=== PATIENT | female | born 1955 | race Caucasian/White ===

== ENCOUNTER 2018-03-27 09:08 | Outpatient (CLI) | payer BC ==
--- NOTE | 2018-03-27 11:40 | BD ---
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 10-year fracture risk of major osteoporotic fracture is 34%, and hip fracture 4.9%. These fractures probabilities are calc ulated for an untreated patient. POS: [facility]
== END 2018-03-27 09:09 | disposition home or self-care (01) ==
LOC: BICMAMMO 09:08
PROVIDERS: ATTEND Family Medicine
DX: Z13.820 Encounter for screening for osteoporosis (principal); M81.0 Age-related osteoporosis without current pathological fracture; M85.852 Other specified disorders of bone density and structure, left thigh
CPT/HCPCS: 77080

== ENCOUNTER 2018-07-10 11:33 | Outpatient (CLI) | payer BC ==
[2018-07-10] MEDS ORDERED: Gadobenate Dimeglumine 529 MG/1 ML (20ML VIAL) ONE (13:01)
--- NOTE | 2018-07-10 15:17 | RAD ---
LUMBAR SPINE 3 VIEWS: HISTORY: M54.10, acute lumbar radiculopathy. COMPARISON: 06/14/2018. FINDINGS: Three views of the lumbar spine including standing neutral, flexion, and extension lateral views are performed. Pedicle screw placement changes at L4-L5 with intradiskal prosthesis with approximately 0.6 cm of ant erolisthesis of L4 on L5 showing no abnormal translation between flexion and extension. IMPRESSION: Stable anterolisthesis of L4 on L5 with postoperative changes including medical screws. Marked narro wing at L5-S1. Generalized spondylosis. No abnormal translation between flexion and extension. POS: [facility]
--- NOTE | 2018-07-10 15:22 | MRI ---
MRI OF THE LUMBAR SPINE WITH AND WITHOUT CONTRAST: INDICATION: Acute lumbar radiculopathy with low back pain for 5 weeks. The patient has referred pain down the ri ght leg. History of lumbar back surgery in 2009. CONTRAST: 14 cc of MultiHance. COMPARISON: Prior MRI of the lumbar spine dated 08/23/2012 from [facility] and lumbar spinal radio graph dated 06/14/2018. FINDINGS: There is stable postprocedural change of a left posterior inter lumbar fusion construct at L4-5. Gra de I anterolisthesis of L4 and L5 is stable. Visualized aspects of the retroperitoneum and paraverte bral soft tissues appear within normal limits. At L5-S1, there is a broad-based disk bulge with facet hypertrophy inducing mild right and mild to mo derate neural foraminal narrowing which is stable to the prior exam. At L4-5, there is a broad-based osteophyte complex with facet hypertrophy, but no appreciable central canal or neural foraminal narrowing. At L3-4, there is a broad-based bulge with facet hypertrophy inducing mild central canal narrowing wh ich is stable. There is mild neural foraminal encroachment which is also stable. At L2-3, there is no appreciable central canal or neural foraminal narrowing. At L1-2, there is no appreciable central canal or neural foraminal narrowing. At T12-L1, there is no appreciable central canal or neural foraminal narrowing. Postcontrast images demonstrate no area of abnormal contrast enhancement. IMPRESSION: Stable postoperative lumbar spine with stable mild central canal narrowing and mild bilateral neural foraminal narrowing at L3-4. POS: [facility]
== END 2018-07-10 11:34 | disposition home or self-care (01) ==
LOC: BICMRI 11:33
PROVIDERS: ATTEND Anesthesiology Pain Medicine
DX: M51.16 Intervertebral disc disorders with radiculopathy, lumbar region (principal); M47.26 Other spondylosis with radiculopathy, lumbar region; M43.16 Spondylolisthesis, lumbar region; M48.061 Spinal stenosis, lumbar region without neurogenic claudication; M48.07 Spinal stenosis, lumbosacral region; Z98.890 Other specified postprocedural states
CPT/HCPCS: 72120; 72158

== ENCOUNTER 2018-12-15 14:42 | Emergency (ER) | payer BC, MEDICARE ==
[~2018-12-15 14:42] MED LIST: ISOVUE-370 76%-LOCM 1 ML ONE
[2018-12-15 15:14] LABS: Bilirubin Negative (Negative); Blood, Urine Negative (Negative); Clarity Clear (Clear); Glucose, Urine (Dipstick) Normal (Negative); Leukocyte Negative Leu/uL (Negative); Nitrite Negative (Negative); Protein, Urine (Dipstick) Negative (Neg-Trace); Urobilinogen Normal mg/dL (Less than 2)
[2018-12-15 15:24] LABS: #Basophils 0.1 thou/uL (0.0-0.2); #Eosinphils 0.3 thou/uL (0.0-0.7); #Lymphocytes 2.9 thou/uL (1.20-3.40); #Neutrophils 8.5 thou/uL (1.40-6.50); %Basophils 0.6 % (0.0-1.0); %Monocytes 8.1 % (0.0-10.0); %Neutrophils 66.3 % (42.0-75.0); Hemoglobin 14.8 g/dL (12.0-16.0); Mean Corpuscular HGB CONC 34.6 g/dL (32.0-36.0); Mean Corpuscular Hemoglobin 30.8 pg (27.0-31.0); Mean Platelet Volume 6.7 fL (7.4-10.4); Platelet Count 333 thou/uL (130-400); RBC Distribution Width 12.1 % (11.5-14.5); White Blood Cell (WBC) Count 12.8 thou/uL (4.8-10.8)
[2018-12-15] MEDS ORDERED: Morphine 4 MG/ML VIAL ONE (15:37)
[2018-12-15 15:48] LABS: ALT (SGPT) 16 U/L (8-55); AST (SGOT) 19 U/L (5-34); Albumin 4.3 g/dL (3.4-4.8); Alkaline Phosphatase 78 U/L (40-150); Anion Gap 18 mmol/L (10-20); BUN (Urea Nitrogen) 15 mg/dL (9.8-20.1); Bilirubin, Total 1.5 mg/dL (0.2-1.2); Calc. Creatinine Clearance 0 mL/min (70-130); Calcium 10.4 mg/dL (7.8-10.44); Carbon Dioxide 25 mmol/L (23-31); Chloride 97 mmol/L (98-107); Estimated GFR-MDRD 54; Globulin 3.6 g/dL (2.4-3.5); Glucose 100 mg/dL (80-115); Lipase 25 U/L (8-78); Protein, Total 7.9 g/dL (6.0-8.3); Sodium 137 mmol/L (136-145)
[2018-12-15 15:51] LABS: Potassium 2.7 mmol/L (3.5-5.1)
[2018-12-15] MEDS ORDERED: Ondansetron PF 4 MG/2 ML Vial ONE ×2 (16:27→16:29)
--- NOTE | 2018-12-15 17:05 | CT ---
EXAM: CT ABDOMEN AND PELVIS HISTORY: Abdominal pain. COMPARISON: 12/06/2015 Procedure: Multiple contiguous axial images were obtained and a CT of the abdomen and pelvis with IV contrast. C oronal reformats were performed. FINDINGS: Lower Chest: Clear lung bases Vessels: Normal caliber aorta Heart: Normal cardiac size. Abdomen: Portal vein:Patent Gallbladder: Surgically absent Liver: within normal limits. Pancreas: within normal limits. Spleen: within normal limits. Adrenals: within normal limits. Kidneys: Symmetric enhancement. No obstructive uropathy. Peritoneum: No ascites or free air, no fluid collection. Bowel: No evidence of bowel obstruction. Ileocecal junction is normal. Normal caliber appendix. Decom pressed colon. Diverticulosis. There is evidence of bowel wall thickening with pericolonic fat stranding involving the sigmoid colon. Diverticulitis is suspected. No abscess. No perforation. Mesentery and Retroperitoneum: No enlarged mesenteric or retroperitoneal lymph nodes. Nonspecific per iaortic lymph node measuring 0.4 x 1.2 cm Abdominal Wall: within normal limits. Pelvis: Reproductive Organs: No pelvic masses. Pelvis: Small amount of fluid and stranding of left hemipelvis secondary to diverticulitis of the sig moid: Bladder: within normal limits. Bones: Stable fusion changes in the lumbar spine. IMPRESSION: 1. Diverticulitis involving the sigmoid colon. No perforation or abscess. 2. Normal caliber appendix.
[2018-12-15] MEDS ORDERED: Potassium Chloride 20 MEQ TAB ONE (17:39)
== END 2018-12-15 18:40 | disposition home or self-care (01) ==
LOC: ERS 14:42
DX: K57.32 Diverticulitis of large intestine without perforation or abscess without bleeding (principal); E87.6 Hypokalemia; E78.5 Hyperlipidemia, unspecified; M19.90 Unspecified osteoarthritis, unspecified site; Z79.899 Other long term (current) drug therapy
CPT/HCPCS: 36415; 74177; 80053; 81003; 83690; 85025; 96361; 96374; 96375; J2270; J2405; Q9966

== ENCOUNTER 2020-08-11 13:50 | Outpatient (CLI) | payer MEDICARE ==
--- NOTE | 2020-08-11 15:18 | BD ---
DEXA bone density scan 08/11/2020 Comparison 03/27/2018. HISTORY: Postmenopausal female undergoing screening for osteoporosis. FINDINGS: BMD (g/cm2) Left Femoral Neck 0.648 T-Score -1.8 (previous -2.1) Total Proximal Left Femur 0.759 T-Score -1.5 (previous -1.7) Right Femoral Neck 0.616 T-Score -2.1 (previous -2.5) Total Proximal Right Femur 0.811 T-Score -1.1 (previous -2.1) Distal 1/3 Distal Radius 0.389 T-Score -0.9 Middle 1/3 Distal Forearm 0.395 T-Score -3.9 Proximal 1/3 Distal Forearm 0.538 T-Score -2.6 Total Distal Forearm 0.415 T-Score -3.0 The forearm was not interrogated on the prior exam. The FRAX-WHO fracture risk assessment tool reports a 10 year fracture risk in an untreated patient at 16-19% for major osteoporotic fracture and 2.4-2.9% for hip fracture. IMPRESSION: Osteoporosis of the distal forearm. Bilateral proximal femoral osteopenia. . Transcribed Date/Time: 08/11/2020 4:45 PM
== END 2020-08-11 13:51 | disposition home or self-care (01) ==
LOC: BICMAMMO 13:50
PROVIDERS: ATTEND Internal Medicine Rheumatology
DX: M81.0 Age-related osteoporosis without current pathological fracture (principal); M85.852 Other specified disorders of bone density and structure, left thigh; M85.851 Other specified disorders of bone density and structure, right thigh
CPT/HCPCS: 77080

== ENCOUNTER 2021-02-23 10:14 | Outpatient (CLI) | payer OTHER | END 2021-02-23 10:15 | disposition home or self-care (01) | LOC: ULT 10:14 | PROVIDERS: ATTEND Physician Assistant Medical | DX: K21.9 Gastro-esophageal reflux disease without esophagitis (principal); R10.13 Epigastric pain; R10.30 Lower abdominal pain, unspecified; K76.0 Fatty (change of) liver, not elsewhere classified; Z90.49 Acquired absence of other specified parts of digestive tract | CPT/HCPCS: 76856; 93975 ==

== ENCOUNTER 2021-03-09 11:40 | Outpatient (CLI) | payer MEDICARE ==
[~2021-03-09 11:40] MED LIST changes: -ISOVUE-370 76%-LOCM 1 ML ONE; +Iopamidol 370 76% 100 ML VIAL ONE
== END 2021-03-09 11:41 | disposition home or self-care (01) ==
LOC: CT 11:40
PROVIDERS: ATTEND Internal Medicine Gastroenterology
DX: R10.30 Lower abdominal pain, unspecified (principal); R19.09 Other intra-abdominal and pelvic swelling, mass and lump; K57.30 Diverticulosis of large intestine without perforation or abscess without bleeding
CPT/HCPCS: 74177; 82565

== ENCOUNTER 2023-07-05 13:17 | Outpatient (CLI) | payer MEDICARE | END 2023-07-05 13:18 | disposition home or self-care (01) | LOC: BICMAMMO 13:17 | PROVIDERS: ATTEND Internal Medicine Rheumatology | DX: M81.0 Age-related osteoporosis without current pathological fracture (principal); M85.851 Other specified disorders of bone density and structure, right thigh; M85.852 Other specified disorders of bone density and structure, left thigh | CPT/HCPCS: 77080 ==

== ENCOUNTER 2024-06-21 09:38 | Outpatient (CLI) | payer MEDICARE | END 2024-06-21 09:39 | disposition home or self-care (01) | LOC: RAD 09:38 | PROVIDERS: ATTEND Internal Medicine Critical Care Medicine | DX: R06.00 Dyspnea, unspecified (principal); J98.4 Other disorders of lung | CPT/HCPCS: 71046 ==

== ENCOUNTER 2024-12-12 10:20 | Outpatient (CLI) | payer MEDICARE ==
[2024-12-12 12:05] LABS: #Basophils Less than 0.03 10x3/uL (0.0-0.2); #Eosinophils 0.14 10x3/uL (0.0-0.7); #Monocytes 0.55 10x3/uL (0.11-0.59); #Neutrophils 4.85 10x3/uL (1.40-6.50); %Basophils 0.3 % (0.0-1.0); %Eosinophils 1.8 % (0.0-10.0); %Lymphocytes 28.3 % (21.0-51.0); %Monocytes 7.1 % (0.0-10.0); %Neutrophils 62.2 % (42.0-75.0); Hematocrit 41.0 % (36.0-47.0); Hemoglobin 14.3 g/dL (12.0-16.0); Mean Corpuscular Hemoglobin 29.2 pg (27.0-31.0); Mean Corpuscular Volume 83.7 fL (78.0-98.0); Platelet Count 297 10x3/uL (130-400); Red Blood Cell (RBC) Count 4.90 mill/uL (4.20-5.40); White Blood Cell (WBC) Count 7.78 10x3/uL (4.8-10.8)
[2024-12-12 12:38] LABS: ALT (SGPT) 27 U/L (Less than 34); AST (SGOT) 39 U/L (11-34); Albumin 4.4 g/dL (3.1-4.5); Alkaline Phosphatase 47 U/L (40-110); Anion Gap 14 mmol/L (10-20); BUN (Urea Nitrogen) 15 mg/dL (9.8-20.1); Bilirubin, Total 0.8 mg/dL (0.3-1.2); Calc. Creatinine Clearance 0 mL/min (70-130); Calcium 9.9 mg/dL (7.8-10.44); Carbon Dioxide 24 mmol/L (23-31); Chloride 103 mmol/L (98-107); Globulin 3.2 g/dL (2.4-3.5); Glucose 94 mg/dL (83-110); Potassium 3.8 mmol/L (3.5-5.1); Sodium 137 mmol/L (136-145)
== END 2024-12-12 10:21 | disposition home or self-care (01) ==
LOC: LABBT 10:20
PROVIDERS: ATTEND Surgery
DX: Z01.818 Encounter for other preprocedural examination (principal); K57.32 Diverticulitis of large intestine without perforation or abscess without bleeding
CPT/HCPCS: 80053; 83036; 85025; 93005; 93010